=== PATIENT | male | born 1995 | race Caucasian/White ===

== ENCOUNTER 2021-05-09 02:11 | Emergency (ER) | payer SELFPAY ==
[~2021-05-09] VITALS: Ht 188 cm; Wt 99.8 kg
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
[2021-05-09] MEDS ORDERED: HYDR-4303 PO (03:38)
[2021-05-09 04:11] VITALS: BP 130/58
--- NOTE | 2021-05-09 04:44 | NUR ---
Patient discharged to home in stable condition. Written and verbal after care instructions given. Patient verbalizes understanding of instruction. Crutches dispensed. Pt instructed on proper use of crutches. Patient able to demonstrate correct use of crutches.
== END 2021-05-09 04:45 | disposition home or self-care (01) ==
LOC: ER 02:15
DX: S20.211A Contusion of right front wall of thorax, initial encounter (principal); S70.01XA Contusion of right hip, initial encounter; V49.59XA Passenger injured in collision with other motor vehicles in traffic accident, initial encounter; Y93.89 Activity, other specified; Y92.413 State road as the place of occurrence of the external cause; Y99.8 Other external cause status
CPT/HCPCS: 71045-TC; 73501